=== PATIENT | female | born 1975 | race Caucasian/White ===

== ENCOUNTER 2018-06-05 22:18 | Emergency (ER) | payer SELFPAY ==
[~2018-06-05] VITALS: Ht 157.5 cm; Wt 117.0 kg
[2018-06-05 22:30] VITALS: BP 162/82
--- NOTE | 2018-06-05 22:49 | PHYS DOC ---
Past Medical History Past Medical History: No Pertinent History Past Surgical History: Additional Past Surgical Histo: ear tubes Alcohol Use: None Drug Use: None Adult General Chief Complaint Chief Complaint: KNEE SWELLING HPI HPI Patient is a 42 year old F who presents with right knee pain for 6 weeks. Patient reports she did have a fall prior to the onset of pain. She reports the pain is worse when she is weightbearing. She has not been taking anything for this. She reports there is been no improvement in symptoms over the last 6 weeks. Review of Systems Review of Systems Constitutional: Denies fever or chills [] Respiratory: Denies cough or shortness of breath [] Cardiovascular: No additional information not addressed in HPI [] Musculoskeletal: Right knee pain and swelling Integument: Denies rash or skin lesions [] Neurologic: Denies focal weakness or sensory changes [] All other systems were reviewed and found to be within normal limits, except as documented in this note. Current Medications Current Medications Current Medications Medications (Trade) Dose Ordered Sig/Jose Start Time Stop Time Status Last Admin Dose Admin Acetaminophen/ Hydrocodone Bitart (Lortab 5/325) 2 tab 1X ONCE 06/05/18 23:00 06/05/18 23:01 DC 06/05/18 23:01 2 TAB Allergies Allergies Allergies Coded Allergies Type Severity Reaction Last Updated Verified No Known Drug Allergies 06/05/18 No Physical Exam Physical Exam Constitutional: Well developed, well nourished, no acute distress, non-toxic appearance. [] HENT: Normocephalic, atraumatic Eyes: PERRLA, EOMI, conjunctiva normal, no discharge. [] Neck: Normal range of motion, no tenderness, supple, no stridor. [] Cardiovascular:Heart rate regular rhythm, no murmur [] Lungs & Thorax: Bilateral breath sounds clear to auscultation [] Skin: Warm, dry, no erythema, no rash. [] Extremities: Limited range of motion to right knee with tenderness to palpation , swelling present Neurologic: Alert and oriented X 3, normal motor function, normal sensory function, no focal deficits noted. [] Psychologic: Affect normal, judgement normal, mood normal. [] Current Patient Data Vital Signs Vital Signs Date Time Temp Pulse Resp B/P (MAP) Pulse Ox O2 Delivery O2 Flow Rate FiO2 06/05/18 22:30 99 16 162/82 (108) 99 Room Air 06/05/18 22:25 98.7 98.7 EKG EKG [] Radiology/Procedures Radiology/Procedures XR right knee -- no acute findings[] Course & Med Decision Making Course & Med Decision Making Pertinent Labs and Imaging studies reviewed. (See chart for details) Plan: knee immobilizer, ultram rx, f/u with PCP, return precautions reviewed Dragon Disclaimer Dragon Disclaimer This electronic medical record was generated, in whole or in part, using a voice recognition dictation system. Splinting Splinting : Location: right knee Pre-Made Type: knee immobilizer Pre-Proc Neuro Vasc Exam: normal Post-Proc Neuro Vasc Exam: normal, unchanged from pre-exam Departure Departure Impression: Primary Impression: Knee pain, acute Disposition: 01 HOME, SELF-CARE Condition: GOOD Referrals: NO PCP (PCP) Jag MACE MD Patient Instructions: Knee Pain Scripts Tramadol Hcl (ULTRAM) 50 Mg Tablet 1 TAB PO Q6HRS, #15 TAB Prov: RYNE PALACIOS APRN 06/05/18 Attending Signature Attending Signature I have reviewed the PA/VENDING SUPERVISOR's note and plan of care. I was available for consultation as needed during the patient's visit in the emergency department. I agree with the clinical impression, plan, and disposition. Problem Qualifiers Primary Impression: Knee pain, acute Laterality: right Qualified Codes: M25.561 - Pain in right knee RYNE PALACIOS APRN Jun 05, 2018 22:49 SARAH MCLEAN DO Jun 06, 2018 01:20
[2018-06-05] MEDS ORDERED: HYDROcodone/APAP 5/325MG 1 TAB TABLET PO ONE (23:00)
[2018-06-05] MEDS ORDERED: TRAM-48 PO (23:10)
--- NOTE | 2018-06-06 02:40 | RAD ---
[facility] right knee radiographs 06/05/2018 CLINICAL HISTORY: Right knee pain. Fall. AP, lateral and oblique digital radiographs of the right knee were obtained. Calcification is seen in the region of the superior aspect of the medial collateral ligament. No acute fracture or dislocation of the right knee is seen. There is no radiographic evidence of a joint effusion. Very mild degenerative changes are seen involving the medial compartment of the right knee. IMPRESSION: No acute fracture or dislocation of the right knee is seen. Electronically signed by: Dean Landrum MD (06/06/2018 2:36 AM) [id number]
== END 2018-06-05 23:20 | disposition home or self-care (01) ==
LOC: ER 22:18
DX: M25.461 Effusion, right knee (principal); Z98.890 Other specified postprocedural states; Z96.22 Myringotomy tube(s) status
CPT/HCPCS: 29505; 73562; 99283